=== PATIENT | male | born 1960 | race Caucasian/White ===

== ENCOUNTER 2025-02-02 06:21 | Day surgery (SDC) | payer OTHER, SELFPAY | END 2025-02-02 15:46 | disposition home or self-care (01) | LOC: GI 06:21 | PROVIDERS: ATTENDING PHYSICIAN Student in an Organized Health Care Education/Training Program | DX: R19.4 Change in bowel habit (principal); R10.32 Left lower quadrant pain; K64.8 Other hemorrhoids; K57.30 Diverticulosis of large intestine without perforation or abscess without bleeding; K62.5 Hemorrhage of anus and rectum; D12.2 Benign neoplasm of ascending colon; D12.3 Benign neoplasm of transverse colon | CPT/HCPCS: 45385; 45380; 88305 ==